=== PATIENT | female | born 1955 | race Caucasian/White ===

== ENCOUNTER → 2017-01-06 | Outpatient (CLI) | payer OTHER ==
[~2017-01-06] MED LIST: ACET-1256 PO; ASPEC325 PO; BUPR-79 PO; BUPRTAB51 PO; BUSP5TAB59 PO; CHOL100010 PO; DOCU100C PO; ESCI10TA17 PO; HYDR-5688 PO; LEVO125T4 PO; LEVO137T3 PO; MELA1CAP9 PO; SIMV20TA2 PO; TRIA37.5 PO
== END | disposition home or self-care (01) ==
LOC: C.MAMM 07:37
PROVIDERS: ATTEND Internal Medicine
DX: E55.9 Vitamin D deficiency, unspecified (principal); M85.80 Other specified disorders of bone density and structure, unspecified site

== ENCOUNTER → 2017-03-11 | Outpatient (CLI) | payer OTHER ==
[~2017-03-11] MED LIST changes: -LEVO125T4 PO; +LEVO125T5 PO
[2017-03-11 13:47] LABS: ESTIMATED AVERAGE GLUCOSE 117 mg/dl; HA1C FLAG Normal (Normal)
[2017-03-11 15:28] LABS: BLOOD UREA NITROGEN 14 mg/dl (7-18); BUN/CREATININE RATIO 17.8 (10-20); CALCIUM 8.9 mg/dl (8.5-10.1); CARBON DIOXIDE 30 mmol/L (21-32); CHLORIDE 105 mmol/L (98-107); CREATININE 0.79 mg/dl (0.60-1.20); GLUCOSE 123 mg/dl (70-99); POTASSIUM 3.2 mmol/L (3.5-5.1); SODIUM 141 mmol/L (136-145)
== END | disposition home or self-care (01) ==
LOC: C.LABBC 11:35
PROVIDERS: ATTEND Physician Assistant Medical
DX: R73.9 Hyperglycemia, unspecified (principal); I10 Essential (primary) hypertension; E03.9 Hypothyroidism, unspecified

== ENCOUNTER → 2017-05-19 | Outpatient (CLI) | payer OTHER ==
--- NOTE | 2017-05-20 13:28 | MAMMOGRAPHY REPORT ---
BILATERAL DIGITAL SCREENING MAMMOGRAM TOMOSYNTHESIS WITH CAD: 05/19/2017 CLINICAL HISTORY: Routine screening. Patient has no complaints. TECHNIQUE: Breast tomosynthesis in addition to standard 2D mammography was performed. Current study was also evaluated with a Computer Aided Detection (CAD) system. COMPARISON: Comparison is made to exams dated: 05/17/2016 mammogram, 05/16/2015 mammogram, 04/07/2014 m ammogram, 04/06/2013 mammogram, 03/31/2012 mammogram, and 03/26/2011 mammogram - [facility]. BREAST COMPOSITION: There are scattered areas of fibroglandular density in both breasts. FINDINGS: There is a 5 mm focal asymmetry with possible associated microcalcification in the 6:00 mi ddle one third of the right breast, for which additional spot magnification views and a possible targ eted ultrasound is recommended. No other suspicious mass, architectural distortion or cluster of microcalcifications is seen bilatera lly. IMPRESSION: ACR BI-RADS CATEGORY 0: INCOMPLETE EVALUATION: NEED ADDITIONAL IMAGING EVALUATION The 5 mm focal asymmetry with possible associated microcalcification in the 6:00 right breast needs a dditional evaluation. The patient will be called to schedule an appointment. Approximately 10% of breast cancers are not detected with mammography. A negative mammographic report should not delay biopsy if a clinically suggestive mass is present. Esther Lundy M.D. ay/:05/19/2017 16:04:25 Hand Packer: Talisha LUNA(Genoveva)(Shayan), [facility] letter sent: Addl Imaging 0 BI-RADS Code: ACR BI-RADS Category 0: Incomplete Evaluation: Need Additional Imaging Evaluation
== END | disposition home or self-care (01) ==
LOC: C.MAMM 07:37
PROVIDERS: ATTEND Internal Medicine Geriatric Medicine
DX: Z12.31 Encounter for screening mammogram for malignant neoplasm of breast (principal); R92.0 Mammographic microcalcification found on diagnostic imaging of breast; N64.89 Other specified disorders of breast

== ENCOUNTER → 2017-05-29 | Outpatient (CLI) | payer OTHER ==
[~2017-05-29] MED LIST changes: +LEVO125T4 PO; -LEVO125T5 PO
--- NOTE | 2017-05-29 13:49 | MAMMOGRAPHY REPORT ---
UNILATERAL RIGHT DIGITAL DIAGNOSTIC MAMMOGRAM AND TARGETED RIGHT ULTRASOUND: 05/29/2017 CLINICAL HISTORY: 61-year-old woman called back from screening mammography for a small, 4 mm focal as ymmetry versus mass with associated calcification in the 6:00 axis. TECHNIQUE: Spot magnification right CC and ML views were obtained. Full field right CC and MLO nichole synthesis images were obtained after placement of a skin BB marker. COMPARISON: Comparison is made to exams dated: 05/19/2017 mammogram, 05/17/2016 mammogram, 05/16/2015 m ammogram, 04/07/2014 mammogram, 04/06/2013 mammogram, and 03/31/2012 mammogram - [facility]ter. BREAST COMPOSITION: There are scattered areas of fibroglandular density in the right breast. FINDINGS: Spot magnification views of the right breast demonstrate a single punctate microcalcificat ion associated with a 4.5 mm focal asymmetry in the 6:00 middle one third of the right breast. No as sociated architectural distortion. This focal asymmetry and calcification are increasingly conspicuo us compared to prior mammograms. Targeted ultrasound was performed in the 6:00, 5:00 and 7:00 axes of the right breast. In the 7:00 b reast, 6 cm from the nipple, there is a lobulated isoechoic mass with anechoic tubular structures cou rsing to and from the mass. This possibly represents an intraductal mass, and measures 4.3 x 2.5 x 5 .2 mm. It was unclear if this sonographic lesion could correlate with the mammographic finding and t herefore a skin BB was placed overlying the sonographic abnormality and repeat full field right CC an d MLO tomosynthesis images were performed. The BB marker appears to align with the mammographic mass in question, confirming mammographicsonographic correlation. Definitive characterization with an u ltrasound guided core needle biopsy is recommended. IMPRESSION: ACR BI-RADS CATEGORY 4: SUSPICIOUS, TARGETED ULTRASOUND ACR BI-RADS CATEGORY 4: SUSPICIO US 1. Ultrasound guided core needle biopsy is recommended for an indeterminate 5 mm mass in the 7:00 ri ght breast, 6 cm from the nipple, thought to correlate with a focal mammographic asymmetry with singl e associated calcification, as described on the screening mammography report. This could represent a n intraductal mass such as a papilloma. Correlation with final post procedure mammograms is also rec ommended. These results and recommendations were discussed with the patient at the time of the exam. She tenta tively scheduled the biopsy prior to leaving the department. Approximately 10% of breast cancers are not detected with mammography. A negative mammographic report should not delay biopsy if a clinically suggestive mass is present. Esther Lundy M.D. ay/:05/29/2017 12:49:22 Cold Molding Press Operator: Jayashree LUNA(Genoveva)(Shayan), [facility] letter sent: Abnormal 4/5 BI-RADS Code: ACR BI-RADS Category 4: Suspicious Ultrasound BI-RADS: ACR BI-RADS Category 4: Suspici ous
== END | disposition home or self-care (01) ==
LOC: C.MAMM 08:24
PROVIDERS: ATTEND Internal Medicine Geriatric Medicine
DX: N64.89 Other specified disorders of breast (principal)

== ENCOUNTER → 2017-06-03 | Outpatient (CLI) | payer OTHER ==
--- NOTE | 2017-06-03 13:05 | Discharge Instructions ---
Discharge Instructions Procedure Procedure Date: Jun 03, 2017. Reason for visit: Right Mass. Discharge Discharge Date: Jun 03, 2017. Discharge Diagnosis: post right breast ultrasound guided core biopsy Instructions Activity Recommendations: Additional Limitations (see below) Return to School/Work: no limitations Recommended Home Diet: No Limitations Provider Instructions: ACTIVITY RECOMMENDATIONS: * No lifting, pushing, pulling or exercising the affected side for three days. RETURN TO SCHOOL/WORK: * You may return to work/school after the procedure, but do not perform any strenuous activities for 24 to 48 hours. MEDICATIONS: * Tylenol (two 325 mg) every four to six hours if needed for mild pain (if not allergic to Tylenol). DIET: * Resume previous diet. SPECIAL CARE INSTRUCTIONS: * Keep biopsy site dry for 24 hours. May shower after 24 hours, but do not soak (bathe) incision. * May remove Tegaderm (plastic patch) tomorrow AFTER showering. * Leave the steri-strips on for one week. Allow the steri-strips to fall off by themselves. If not off after one week, you may remove them. You may place a Bandaid crosswise over the strips, if desired. * Apply ice 10 minutes on and 10 minutes off as needed. * Wear a bra at bedtime to sleep more comfortably for 2-3 days. * Your referring physician should have the results after approximately 5 to 7 business days. * Call for unusual bleeding, fever, drainage, etc or if you have any questions call [phone] during normal business hours or after hours call Dr Lundy, . FOLLOW UP VISIT: Follow-up with Referring Physician as scheduled. Allergies Coded Allergies: No Known Allergies (Unverified , 05/14/16) Bailee Guerrero Recommendations: Call your doctor if: * Temperature above 101 degrees * Pain not relieved by pain medicine ordered * There is increased drainage or redness from any incision * You have any unanswered questions or concerns. Your Doctors Instructions noted above were prepared by provider Esther Lundy. Patient Signature Section: Patient Instructions Signature Page Moraima Morel Patient (or Guardian) Signature/Date: I have read and understand the instructions given to me by my caregivers. Caregiver/RN/Doctor Signature/Date: The above-named patient and/or guardian has received patient instructions on this date. + Original Patient Signature Page (only) stays with chart. Please make copy for patient.
--- NOTE | 2017-06-03 13:53 | MAMMOGRAPHY REPORT ---
THIS REPORT HAS BEEN AMENDED. ULTRASOUND GUIDED BIOPSY RIGHT BREAST: 06/03/2017 CLINICAL HISTORY: Lobulated hypoechoic possible intraductal 5 mm mass in the 7:00 right breast, thoug ht to correlate with a small focal asymmetry and associated microcalcifications seen mammographically . Patient presents for ultrasound-guided core needle biopsy. COMPARISON: Comparison is made to exams dated: 06/03/2017 mammogram, 05/29/2017 mammogram, 05/29/2017 ult rasound, 05/19/2017 mammogram, 05/17/2016 mammogram, and 05/16/2015 mammogram - [facility]ter. PATIENT CONSENT: The procedure, risks and benefits were discussed with the patient and informed writt en consent was obtained. Specific risks to this procedure include: bleeding, infection, puncture of a djacent structure, nontarget biopsy, sampling error, medication reaction, metal allergy and pain. PROCEDURE DESCRIPTION: A time out was performed and the right breast was agreed as the site of biopsy . The skin was prepped and draped in the usual sterile fashion. The hypoechoic solid mass, possibly i ntraductal, in the 7:00 right breast was chosen as the target for biopsy. Subcutaneous and intraparen chymal 1% buffered lidocaine was administered as local anesthesia. A skin incision was made. Through the incision, 4 samples were taken with a 12-gauge Celero biopsy device. A ribbon-shaped metallic ma rker was placed at the biopsy site. Hemostasis was achieved after manual compression. The patient angelita erated the procedure well and there was no immediate complication. The samples were sent to [facility] in an appropriately labeled container. Postprocedure right CC and ML tomosynthesis images were obtained. There is alignment of the ribbon-s haped metallic biopsy marker with the expected location of the previously observed focal asymmetry, c onfirming mammographicsonographic correlation. No residual asymmetry is currently identified, nor i s the associated microcalcification. No significant postbiopsy hematoma is seen. IMPRESSION: ULTRASOUND GUIDED BIOPSY Status post ultrasound-guided core biopsy of a small hypoechoic, possibly intraductal mass in the 7:0 0 right breast, which correlates with a mammographic focal asymmetry. The patient will receive notification of the biopsy results from her referring physician. Esther Lundy M.D. ay/:06/03/2017 13:21:59 Restaurant Greeter: Sheila BECK)(Shayan), [facility] AMENDMENT: 06/13/2017 Esther Lundy M.D. Pathology results from the ultrasound-guided core biopsy of a small, 5 mm mass with associated calcif ication in the 7:00 right breast yielded a papillary proliferation with usual ductal hyperplasia. In the comment section of the pathology report, "sections reveal an intraductal papillary proliferation . Features of usual ductal hyperplasia are noted. No atypical ductal hyperplasia or DCIS is identif ied. No invasive carcinoma is seen. On the tibia is noted, papillary lesions may show differing fea tures within different areas of the lesion and as such excisional biopsy is suggested." It should be noted that using ultrasound guidance, the lesion was biopsied to near complete resolutio n and on the postprocedure mammogram images, no residual mass lesion was seen in the area of the biop sy marker clip. Therefore it is unclear if any of the lesion remains for surgical excision. Neverth eless, surgical consultation for discussion of possible surgical excision versus imaging follow-up is recommended.
--- NOTE | 2017-06-03 13:54 | MAMMOGRAPHY REPORT ---
UNILATERAL RIGHT DIGITAL DIAGNOSTIC MAMMOGRAM TOMOSYNTHESIS: 06/03/2017 CLINICAL HISTORY: Status post ultrasound-guided core biopsy of a possible intraductal mass in the 7:0 0 right breast on ultrasound thought to correlate with a focal asymmetry with single associated calci fication mammographically. Please refer to the report from right breast ultrasound guided core biopsy performed at the same time for full detail. IMPRESSION: POST PROCEDURE IMAGING FOR MARKER PLACEMENT Please refer to the report from right breast ultrasound guided core biopsy performed at the same time for full detail. Approximately 10% of breast cancers are not detected with mammography. A negative mammographic report should not delay biopsy if a clinically suggestive mass is present. Esther Lundy M.D. ay/:06/03/2017 13:06:43 Software Quality Specialist: Sheila BECK)(Shayan), [facility] BI-RADS Code: Post Procedure Imaging For Marker Placement
== END | disposition home or self-care (01) ==
LOC: C.MAMM 12:36
PROVIDERS: ATTEND Internal Medicine Geriatric Medicine
DX: N63 Unspecified lump in breast (principal); N62 Hypertrophy of breast

== ENCOUNTER → 2017-07-18 | Outpatient (CLI) | payer OTHER ==
[~2017-07-18] MED LIST changes: -ASPEC325 PO; -BUPR-79 PO; -BUPRTAB51 PO; -DOCU100C PO; -LEVO137T3 PO
[2017-07-18 14:13] LABS: BLOOD UREA NITROGEN 20 mg/dl (7-18); BUN/CREATININE RATIO 26.9 (10-20); CALCIUM 8.7 mg/dl (8.5-10.1); CARBON DIOXIDE 30 mmol/L (21-32); CHLORIDE 104 mmol/L (98-107); CREATININE 0.74 mg/dl (0.60-1.20); GLUCOSE 123 mg/dl (70-99); POTASSIUM 3.6 mmol/L (3.5-5.1); SODIUM 140 mmol/L (136-145)
[2017-07-18 14:26] LABS: BASO % 0.3 %; BASO ABS # 0.02 K/uL (0-0.2); COMPLETE YES; EOS % 2.2 %; HEMATOCRIT 41.9 % (37-47); IG% 0.1 %; LYMPH % 26.9 %; LYMPH ABS # 1.85 K/uL (1.2-3.4); MEAN CELL VOLUME 89.7 fL (80-100); MEAN CORPUSCULAR HGB CONC 34.6 g/dl (32-36); MEAN PLATELET VOLUME 10.3 fL (7.4-10.4); MONO % 6.7 %; NEUT % 63.8 %; PLATELET COUNT 281 K/uL (130-400); RED BLOOD COUNT 4.67 M/uL (4.2-5.4); WHITE BLOOD COUNT 6.88 K/uL (4.8-10.8)
== END | disposition home or self-care (01) ==
LOC: C.LABBC 11:39
PROVIDERS: ATTEND Surgery
DX: Z01.812 Encounter for preprocedural laboratory examination (principal); D24.1 Benign neoplasm of right breast

== ENCOUNTER → 2017-07-29 | Day surgery (SDC) | payer OTHER ==
[2017-07-17 16:31] VITALS: Ht 172.7 cm; Wt 104.5 kg
[~2017-07-29] VITALS: Ht 172.7 cm; Wt 104.5 kg
[~2017-07-29] MED LIST changes: +ATROPINE SULFATE 0.1 MG/ML 5ML SYR IV PRN; +CEFAZOLIN 2000 MG/60 ML D5W IV SCH; +DEXAMETHASONE SOD INJ 4 MG/ML VIAL ONE; +EpHEDrine SULFATE INJ 50 MG/ML AMP IV PRN; +FENTANYL CITRATE INJ 50 MCG/1 ML 2 ML VIAL ONE; +HYDROCODONE/ACETAMOPHEN 5/325MG TAB PO PRN; +LACTATED RINGER'S 1000ML 1,000 ML IV SCH; +LIDOCAINE HCL 1% 20 ML VIAL ONE; +LIDOCAINE HCL 2% 2 ML VIAL (20MG/ML) ONE; +MIDAZOLAM HCL 1 MG/ML 2ML VIAL ONE; +ONDANSETRON INJ 2 MG/ML 2 ML VIAL ONE; +PROPOFOL IV EMULSION 10 MG/ML 20 ML VIAL IV ONE; +SODIUM CHLORIDE 0.9% 1000ML 1,000 ML IV SCH
--- NOTE | 2017-07-29 11:59 | History & Physical Bridge - SC ---
H&P Re-Evaluation Bridge Note: I have examined the patient, reviewed the History & Physical and in the interval since the performance of the History & Physical I have noted the following changes of clinical significance: No changes noted
--- NOTE | 2017-07-29 12:59 | Discharge Instructions-SurgCtr ---
Discharge Instructions Date of Service Jul 29, 2017. Visit Reason for Visit: Right Breast Papilloma Discharge Discharge Diagnosis / Problem: papilloma Rt breast Discharge Goals Goal(s): Decrease discomfort, Improve function, Improve disease control Activity Recommendations Activity Limitations: as noted below Lifting Limitations: no more than 25 pounds Exercise/Sports Limitations: until after follow-up appointment May Resume Sexual Activity: when tolerated Shower/Bathe: tomorrow Driving or Machine Use: resume 1 day after discharge SPECIAL CARE INSTRUCTIONS: * Cover incisions and change daily for comfort/drainage. * May use ibuprofen for pain as tolerated. * Expect some swelling and bruising. Call your doctor if: * Temperature above 101 degrees * Pain not relieved by pain medicine ordered * There is increased drainage or redness from any incision * You have any unanswered questions or concerns [phone]. FOLLOW UP VISIT: If not already scheduled, please call the office for a follow-up visit. for next week- some sutures OFFICE PHONE NUMBER: Dr. Multani Office Anesthesia . Post Anesthesia Instructions: If you have had General Anesthesia or IV Sedation: * Do not drive today. * Resume driving when surgeon permits. * Do not make important decisions or sign legal documents today. * Call surgeon for: 1. Temperature elevations greater than 101 degrees F. 2. Uncontrollable pain. 3. Excessive bleeding. 4. Persistent nausea and vomiting. 5. Medication intolerance (nausea, vomiting or rash). * For nausea and vomiting use only clear liquids such as: tea, soda, bouillon until nausea subsides, then gradually increase diet as tolerated. * If you have any concerns or questions, call your surgeon's office. If physician is unavailable and it is an emergency, call 911 or go to the nearest emergency room. . Diet Recommendations Home Diet: resume previous diet Procedures Procedures Performed: Right Breast Biopsy With Needle Localization Pending Studies Studies pending at discharge: no Medical Emergencies . Who to Call and When: Medical Emergencies: If at any time you feel your situation is an emergency, please call 911 immediately. . Non-Emergent Contact Non-Emergency issues call your: Primary Care Provider, Surgeon . . "Provider Documentation" section prepared by Duran Multani. .
[2017-07-29 13:39] VITALS: TEMP 36.4
--- NOTE | 2017-07-29 13:46 | Anesthesiology Progress Note ---
Anesthesia Post Op Note Date & Time Jul 29, 2017 at 13:46 Vital Signs Pain Intensity: 0 Vital Signs Past 12 Hours Date Time Temp Pulse Resp B/P (MAP) Pulse Ox O2 Delivery O2 Flow Rate FiO2 07/29/17 13:39 36.4 76 16 135/98 (110) 98 Room Air 07/29/17 13:26 36.4 71 18 126/90 96 Room Air 07/29/17 13:23 72 14 95 07/29/17 13:23 72 14 07/29/17 13:21 130/76 07/29/17 13:18 75 12 97 07/29/17 13:18 75 12 07/29/17 13:16 140/71 07/29/17 13:13 70 11 07/29/17 13:13 66 11 100 07/29/17 13:11 125/85 07/29/17 13:08 73 11 94 07/29/17 13:08 73 11 07/29/17 13:06 129/86 07/29/17 13:03 73 11 99 07/29/17 13:03 73 11 07/29/17 13:02 74 10 07/29/17 13:02 73 10 99 07/29/17 13:01 124/76 07/29/17 12:57 76 10 07/29/17 12:57 76 10 98 07/29/17 12:56 124/77 07/29/17 12:53 119/82 07/29/17 12:52 90 07/29/17 12:52 36.2 86 16 119/82 96 Mask 6 07/29/17 12:52 90 96 07/29/17 10:11 36.6 76 16 133/84 (100) 97 Room Air Notes Mental Status: alert / awake / arousable, participated in evaluation Pt Amnestic to Procedure: Yes Nausea / Vomiting: adequately controlled Pain: adequately controlled Airway Patency, RR, SpO2: stable & adequate BP & HR: stable & adequate Hydration State: stable & adequate Anesthetic Complications: no major complications apparent
[2017-07-29 13:50] VITALS: BP 132/84; PULSE 67; O2SAT 98
--- NOTE | 2017-07-29 14:06 | OPERATIVE REPORT ---
DATE OF OPERATION: 07/29/2017 PREOPERATIVE DIAGNOSIS: Right breast papilloma. POSTOPERATIVE DIAGNOSIS: Same. NAME OF OPERATION: Excision of right breast papilloma. STAFF SURGEON: Dr. Multani. ANESTHESIA: 1% plain lidocaine with sedation. PROCEDURE: The patient was brought in the operating room and placed on the operating table in supine position. Her right breast was prepped and draped in usual fashion. She had a needle placed inferiorly in the breast center. Using 1% plain lidocaine, skin and subcutaneous tissue around the needle were anesthetized. Incision made carrying dissection down around the tip of the needle excising the tissue sending it for mammography. The clip was within the specimen. Deep tissue was reapproximated using 2-0 plain catgut suture then the skin reapproximated using 5-0 Prolene suture. Dressing applied and patient transferred to recovery room in stable condition. I attest to the content of the Intraoperative Record and any orders documented therein. Any exception s are noted below.
--- NOTE | 2017-07-29 16:43 | MAMMOGRAPHY REPORT ---
NEEDLE LOCALIZATION RIGHT BREAST: 07/29/2017 CLINICAL HISTORY: 61-year-old woman with a biopsy-proven papilloma in the 7:00 posterior right breast . She presents for preoperative localization prior to surgical excision. COMPARISON: Comparison is made to exams dated: 07/29/2017 specimen - [facility], 05/24 ultrasound biopsy, 06/03/2017 mammogram, and 05/29/2017 mammogram - [facility]. PATIENT CONSENT: The risks of the procedure were explained to the patient and informed consent was ob tained. The patient denied eating or drinking anything this morning that would preclude anesthesia. She also denied allergy to lidocaine. PROCEDURE DESCRIPTION: Post procedure mammograms dated 06/03/2017 were reviewed. The ribbon-shaped m etallic biopsy marker in the 7:00 right breast is the intended target for preoperative localization. With the patient standing, the left breast was placed in CC from below compression. 1% buffered Lido porfirio without epinephrine was administered as local anesthesia. A 5cm Eubanks II needle and wire comb ination was inserted into the breast. Optimal positioning was confirmed and the wire was locked in pl tavo, leaving both the needle and wire within the breast, as per surgeon's preference. The entire pro cedure including approach and needle length were discussed with the operating surgeon prior to surger y. The patient tolerated the procedure well and there was no immediate complication. She was sent t o the operating room in satisfactory condition. The specimen radiograph demonstrates the localizing needle and wire, a small nodular asymmetry and a ribbon-shaped biopsy marker clip, compatible with successful preoperative localization and subsequent surgical excision. IMPRESSION: NEEDLE LOCALIZATION Status post successful preoperative needle and wire localization for biopsy-proven papilloma in the 7 :00 right breast. The imaged specimen includes the intended abnormality. The patient will receive notification of the pathology results from her referring physician. Esther Lundy M.D. ay/:07/29/2017 12:56:36 Liner Checker: Juanis Pittman, [facility]
--- NOTE | 2017-07-31 07:39 | MAMMOGRAPHY REPORT ---
SPECIMEN: 07/29/2017 CLINICAL HISTORY: Right breast surgical specimen from papilloma excision. Please refer to the report from right breast image guided needle localization performed at the same t rupert for full detail. IMPRESSION: SPECIMEN Please refer to the report from right breast image guided needle localization performed at the same t rupert for full detail. Esther Lundy M.D. ay/:07/29/2017 10:56:31 Multi Needle Machine Operator: Juanis Pittman, [facility]
== END | disposition home or self-care (01) ==
LOC: X.SURG 09:17
PROVIDERS: ATTEND Surgery
DX: D24.1 Benign neoplasm of right breast (principal); N63 Unspecified lump in breast; N60.91 Unspecified benign mammary dysplasia of right breast

== ENCOUNTER → 2017-12-11 | Outpatient (CLI) | payer OTHER ==
[2017-12-12 06:17] LABS: HEMOGLOBIN A1C 5.7 % (4.5-5.6)
[2017-12-12 06:17] LABS: ESTIMATED AVERAGE GLUCOSE 117 mg/dl; HA1C FLAG Normal (Normal)
== END | disposition home or self-care (01) ==
LOC: C.LAB1850 13:04
DX: R73.9 Hyperglycemia, unspecified (principal)

== ENCOUNTER → 2018-06-11 | Outpatient (CLI) | payer OTHER ==
[~2018-06-11] MED LIST changes: -ATROPINE SULFATE 0.1 MG/ML 5ML SYR IV PRN; -CEFAZOLIN 2000 MG/60 ML D5W IV SCH; -DEXAMETHASONE SOD INJ 4 MG/ML VIAL ONE; -EpHEDrine SULFATE INJ 50 MG/ML AMP IV PRN; -FENTANYL CITRATE INJ 50 MCG/1 ML 2 ML VIAL ONE; -HYDR-5688 PO; -HYDROCODONE/ACETAMOPHEN 5/325MG TAB PO PRN; -LACTATED RINGER'S 1000ML 1,000 ML IV SCH; -LEVO125T4 PO; +LEVO125T5 PO; -LIDOCAINE HCL 1% 20 ML VIAL ONE; -LIDOCAINE HCL 2% 2 ML VIAL (20MG/ML) ONE; -MIDAZOLAM HCL 1 MG/ML 2ML VIAL ONE; -ONDANSETRON INJ 2 MG/ML 2 ML VIAL ONE; -PROPOFOL IV EMULSION 10 MG/ML 20 ML VIAL IV ONE; -SODIUM CHLORIDE 0.9% 1000ML 1,000 ML IV SCH
== END | disposition home or self-care (01) ==
LOC: C.LAB1850 08:33
PROVIDERS: ATTEND Physician Assistant Medical
DX: Z00.00 Encounter for general adult medical examination without abnormal findings (principal)

== ENCOUNTER → 2018-06-15 | Outpatient (CLI) | payer OTHER ==
[2018-06-15 10:03] LABS: ALBUMIN 3.5 gm/dl (3.4-5.0); ALKALINE PHOSPHATASE 93 U/L (45-117); ALT/SGPT 26 U/L (12-78); AST/SGOT 13 U/L (15-37); BLOOD UREA NITROGEN 18 mg/dl (7-18); CALCIUM 8.4 mg/dl (8.5-10.1); CARBON DIOXIDE 28 mmol/L (21-32); CREATININE 0.75 mg/dl (0.60-1.20); GLUCOSE 104 mg/dl (70-99); POTASSIUM 3.8 mmol/L (3.5-5.1); SODIUM 139 mmol/L (136-145); TOTAL PROTEIN 7.5 gm/dl (6.4-8.2)
== END | disposition home or self-care (01) ==
LOC: C.LAB1850 08:12
PROVIDERS: ATTEND Physician Assistant Medical
DX: I10 Essential (primary) hypertension (principal); E03.9 Hypothyroidism, unspecified; R79.9 Abnormal finding of blood chemistry, unspecified; R73.9 Hyperglycemia, unspecified; M85.80 Other specified disorders of bone density and structure, unspecified site

== ENCOUNTER → 2018-06-29 | Outpatient (CLI) | payer OTHER ==
--- NOTE | 2018-06-29 07:16 | DIAGNOSTIC IMAGING REPORT ---
Brain MRA HISTORY: HEADACHE, FAMILY HX ANEURYSM TECHNIQUE: 3-D [id number] MRA of the brain was performed without contrast. COMPARISON STUDY: None. FINDINGS: Visualized intracranial internal carotid arteries, distal vertebral arteries, and basilar artery are widely patent. There is no significant stenosis, occlusion, or aneurysm seen within the bilateral ACAs, MCAs, or it analyst. IMPRESSION: No significant stenosis, occlusion, or aneurysm within the [place]. Electronically signed by: Cecilio Yanes M.D. 06/29/2018 7:14 AM Dictated Date/Time: 06/29/2018 7:10 AM
== END | disposition home or self-care (01) ==
LOC: C.MRI 06:28
PROVIDERS: ATTEND Physician Assistant Medical
DX: Z00.00 Encounter for general adult medical examination without abnormal findings (principal); R51 Headache; Z82.49 Family history of ischemic heart disease and other diseases of the circulatory system

== ENCOUNTER 2023-04-22 09:20 | Observation (INO) ==
--- NOTE | 2023-04-03 15:55 | PAT Medication Instructions ---
Medication Instructions Date of Service April 03, 2023 Home Medications Medication Instructions Recorded Oxygen Home See Rx Instructions .Route 11/29/20 .COMPLEX #1 ea atorvastatin 20 mg tablet 20 mg PO QAM #90 tabs 07/16/22 bupropion HCl 300 mg 24 hr tablet, 300 mg PO QAM #90 tabs 07/16/22 extended release atorvastatin 20 mg tablet 20 mg PO QAM bupropion HCl 300 mg 24 hr tablet, extended release 300 mg PO QAM acetaminophen 500 mg tablet 100 mg PO QAM celecoxib 200 mg capsule (Celebrex) 200 mg PO QAM cholecalciferol (vitamin D3) 125 mcg (5,000 unit) tablet (Vitamin D3) 125 mcg PO QAM duloxetine 60 mg capsule,delayed release 60 mg PO QAM levothyroxine 150 mcg tablet 150 mcg PO QAM omeprazole 20 mg capsule,delayed release 20 mg PO QAM propranolol 60 mg capsule,24 hr,extended release 60 mg PO QAM triamterene 37.5 mg-hydrochlorothiazide 25 mg tablet 1 tab PO QAM zolpidem 6.25 mg tablet,extended release,multiphase (Ambien CR) 6.25 mg PO HS ASK your surgeon for instructions celecoxib 200 mg capsule (Celebrex) 200 mg PO QAM DO NOT take the morning of surgery triamterene 37.5 mg-hydrochlorothiazide 25 mg tablet 1 tab PO QAM cholecalciferol (vitamin D3) 125 mcg (5,000 unit) tablet (Vitamin D3) 125 mcg PO QAM Take morning of surgery With a small sip of water, OTHERWISE NOTHING TO EAT OR DRINK AFTER MIDNIGHT: propranolol 60 mg capsule,24 hr,extended release 60 mg PO QAM omeprazole 20 mg capsule,delayed release 20 mg PO QAM duloxetine 60 mg capsule,delayed release 60 mg PO QAM levothyroxine 150 mcg tablet 150 mcg PO QAM acetaminophen 500 mg tablet 100 mg PO QAM atorvastatin 20 mg tablet 20 mg PO QAM bupropion HCl 300 mg 24 hr tablet, extended release 300 mg PO QAM Take evening before surgery zolpidem 6.25 mg tablet,extended release,multiphase (Ambien CR) 6.25 mg PO HS Other Notes If you have any questions please call us at [phone] or [phone] or [phone] or [phone]
--- NOTE | 2023-04-07 09:37 | Anesthesiology Consultation ---
Date of Service April 07, 2023 Assessment & Plan (1) Encounter for pre-operative examination: - COVID screening: Per assessment on 04/07: No known COVID-19 positive contacts or current COVID-19 related symptoms. Travel screen negative. Patient vaccinated. At surgeon discretion if preop Covid testing being done. - Outpatient joint assessment: Pt currently scheduled for inpatient pathway. If surgeon requests review for outpatient joint pathway, patient is not recommended candidate for outpatient joint program from anesthesia standpoint. - S/P Right TKA (06/28/16): SAB at L4-5 (x2 attempts) + PNB at [facility] Chart Review Chart Review: Acceptable Risk for Surgery and Patient seen in Pre Admission Testing Teaching & Discussion Pre-Anesthesia Teaching/Discussion Notes: Instructed NPO after midnight before surgery,except medications with 15 cc of water. Medication instructions provided according to the PAT guidelines. History Surgery Operation Date: 04/22/23 08:50 Proposed Procedures p Left Total Knee Arthroplasty - Ryan Cespedes MD Height/Weight Height: 5 ft 8 in Weight: 104.2 kg Allergies Allergy/AdvReac Type Severity Reaction Status Date / Time No Known Allergies Allergy Verified 04/07/23 08:27 Medications Home Medications Medication Instructions Recorded Confirmed Last Taken Oxygen Home See Rx Instructions .Route 11/29/20 04/03/23 Unknown .COMPLEX #1 ea atorvastatin 20 mg tablet 20 mg PO QAM #90 tabs 07/16/22 04/03/23 11/06/22 06:00 bupropion HCl 300 mg 24 hr tablet, 300 mg PO QAM #90 tabs 07/16/22 04/03/23 11/06/22 06:00 extended release acetaminophen 500 mg tablet 100 mg PO QAM 04/03/23 04/03/23 Unknown celecoxib 200 mg capsule (Celebrex) 200 mg PO QAM pain 04/03/23 04/03/23 Unknown cholecalciferol (vitamin D3) 125 125 mcg PO QAM 04/03/23 04/03/23 Unknown mcg (5,000 unit) tablet (Vitamin D3) duloxetine 60 mg capsule,delayed 60 mg PO QAM 04/03/23 04/03/23 Unknown release levothyroxine 150 mcg tablet 150 mcg PO QAM 04/03/23 04/03/23 Unknown omeprazole 20 mg capsule,delayed 20 mg PO QAM 04/03/23 04/03/23 Unknown release propranolol 60 mg capsule,24 60 mg PO QAM 04/03/23 04/03/23 Unknown hr,extended release triamterene 37.5 1 tab PO QAM 04/03/23 04/03/23 Unknown mg-hydrochlorothiazide 25 mg tablet zolpidem 6.25 mg tablet,extended 6.25 mg PO HS 04/03/23 04/03/23 Unknown release,multiphase (Ambien CR) Past Medical History Medical History Anxiety Depression Dyslipidemia GERD (gastroesophageal reflux disease) History of COVID-19 11/2022 (home test)- sinus symptoms, rx paxlovid > resolved Hypertension Hypothyroidism Insomnia Migraine Hx Osteoarthritis Osteopenia Sleep apnea O2 2L HS (rare use, per patient often wakes up with it no longer being on/unaware how this happens, has tried/cannot tolerate CPAP) Thyroid goiter s/p radioactive iodine Exercise / Class Metabolic Activity II 4-5 Yardwork/Stairs/Walk up hill Past Family History Family History Mother Hypertension Lung cancer Father Lung cancer Hypertension Cerebral aneurysm Sister Hypertension Other No family history of adverse response to anesthesia Denies family history of Ovarian cancer Prostate cancer Myocardial infarction Breast cancer Colorectal cancer Stroke Past Surgical History Surgical History History of bilateral tubal ligation History of dilatation and curettage History of esophagogastroduodenoscopy (EGD) History of left cataract extraction History of open reduction and internal fixation (ORIF) procedure right wrist (hardware removed) History of right cataract extraction History of tonsillectomy and adenoidectomy History of total right knee replacement (TKR) Right TKA (06/28/16): SAB at L4-5 (x2 attempts) + PNB at [facility] History of wisdom tooth extraction Hx of colonoscopy Hx of right breast biopsy benign Past Anesthesia History No Hx of Anesthesia Complications and No Family Hx of Anesthesia Complications History of PONV No Hx of PONV and No Hx of Motion Sickness Social History Smoking Status: Current every day smoker Smoking cigarettes per day: Quit cigarettes 25 years ago, daily vapes Do You Dip or Chew Tobacco: No Hx Alcohol Use: Yes Alcohol type: beer alcohol intake frequency: a few times a month (one drink/week) Hx Substance Use: No substance use type: does not use Review of Systems Patient denies chest pain, shortness of breath, dyspnea on exertion, fever, chills, cough, wheezing, palpitations. Physical Exam Vital Signs VITALS BP 103/72 P 76 TEMP 98.1 SP02 95%RA RESP 16 PHYSICAL Full cervical extension range of motion. Full TMJ range of motion. TMD 4 finger breaths Mallampati Score 2 Dentition: several missing teeth, upper right side "broken tooth" > no plan for dental work prior to surgery* Lungs: clear throughout to auscultation Cardiac: regular rate and rhythm, no murmurs noted Spine: normal Carotid arteries: negative bruit Extremities: no LE edema Lab Results Anesthesia Preop Results Results Anesthesia Widget: WBC 6.63 K/ul (4.8-10.8) 04/07/23 Hgb 13.6 g/dl (12.0-16.0) 04/07/23 Hct 40.0 % (37.0-47.0) 04/07/23 Plt 246 K/uL (130-400) 04/07/23 Na 140 mmol/L (136-145) 04/07/23 K 4.1 mmol/L (3.5-5.1) 04/07/23 Cl 105 mmol/L (98-107) 04/07/23 CO2 30 mmol/L (21-32) 04/07/23 BUN 34 mg/dl (6-23) H 04/07/23 Creat 0.74 mg/dl (0.6-1.2) 04/07/23 Glucose Level 112 mg/dl (70-99(Fasting)) H 04/07/23 PT 10.3 Seconds (9.0-12.0) 04/07/23 PTT 28.1 Seconds (21.0-31.0) 04/07/23 INR 0.9 (0.9-1.1) 04/07/23 TSH 2.503 uIu/ml (0.300-4.500) 02/21/23 HA1c 5.6 % (4.5-5.6) 02/21/23 Blood Type A Positive 04/07/23 Antibody Screen NEGATIVE 04/07/23 Testing Electrocardiogram Date: 04/07/23 NSR at 74bpm. Chest X-Ray Date: 04/07/23 FINDINGS: PA and lateral chest radiographs are compared to study dated 05/14/2016. The cardiomediastinal silhouette is unremarkable. Chronic interstitial thickening is similar to previous. A calcified granuloma in the left lung is unchanged. The lungs and pleural spaces are otherwise clear. There is no pneumothorax. The skeletal structures are osteopenic. The bony thorax appears intact. Degenerative change is noted in the shoulders. Calcified joint bodies are seen on the left. IMPRESSION: No active disease in the chest. COVID-19 Risk Screen Screening Information COVID-19 Screen Date: 04/07/23 Exposure 21 Days Family/Household +COVID Last 21 Days: No Exposure 10 Days Any COVID Exposure Last 10 Days: No Symptoms Last 10 Days Experienced COVID Sx Last 10 Days: No + COVID 0-90 Days COVID + in Last 0-90 Days: No
[~2023-04-22 09:20] MED LIST changes: -ACET-1256 PO; +ACETAMINOPHEN 500 MG TAB PO SCH; +BUPIVACAINE 0.5 % 5 MG/1 ML PF 10ML VIAL ONE; +BUPIVACAINE LIPOSOME/PF 266 MG, BUPIVACAINE/EPINEPHRINE 50 ML, SODIUM CHLORIDE 0.9% PF ... INFIL SCH; -BUSP5TAB59 PO; -CHOL100010 PO; +CeleBREX 200 MG CAP PO SCH; +EPINEPHrine INJ 1 MG/ML AMP ONE; -ESCI10TA17 PO; +FAMOTIDINE 20 MG TAB PO SCH; -LEVO125T5 PO; +LR 500ML BOLUS, THEN 15ML/HR IV SCH; +LR 60ML/HR IV SCH; -MELA1CAP9 PO; +METOCLOPRAMIDE HCL 10 MG TABLET PO SCH; +ROPIVACAINE 0.5% 5 MG/ML 30 ML VIAL ONE; -SIMV20TA2 PO; +Scopolamine 1 MG TDSY TD SCH; +TRANEXAMIC ACID 1,000 MG **IV Intra-op IV SCH; -TRIA37.5 PO; +ceFAZolin 2000MG 2,000 MG/15 ML SYR IV SCH; +dexAMETHasone**PF** 10 MG/ML VIAL IV SCH
--- NOTE | 2023-04-22 10:49 | History & Physical Bridge Note ---
Date of Service April 22, 2023 History & Physical Bridge Note I have examined the patient, reviewed the History & Physical and in the interval since the performance of the History & Physical I have noted the following changes of clinical significance: no changes noted
[2023-04-22] MEDS ORDERED: PROPOFOL IV EMULSION 10 MG/ML 20 ML VIAL IV ONE (12:50)
[2023-04-22] MEDS ORDERED: MIDAZOLAM HCL 1 MG/ML 2ML VIAL ONE (12:51)
[2023-04-22] MEDS ORDERED: SODIUM CHLORIDE 0.9% PF 50 ML VIAL ONE (13:06)
[2023-04-22] MEDS ORDERED: BUPIVACAINE/EPINEPHRINE 0.25% 1:200,000 30 ML VIAL ONE (13:06)
[2023-04-22] MEDS ORDERED: BUPIVACAINE LIPOSOME 1.3% 266 MG/20 ML VIAL ONE (13:06)
[2023-04-22] MEDS ORDERED: FLUMAZENIL 0.1 MG/1 ML 10 ML VIAL IV PRN (13:23)
[2023-04-22] MEDS ORDERED: HYDROmorphone INJ 1 MG/ML SYRINGE IV PRN (13:23)
[2023-04-22] MEDS ORDERED: ONDANSETRON INJ 2 MG/ML 2 ML VIAL IV PRN ×2 (13:23→16:25)
[2023-04-22] MEDS ORDERED: PROMETHAZINE HCL 12.5 MG in SODIUM CHLORIDE 0.9% 50 ML IV PRN (13:23)
[2023-04-22] MEDS ORDERED: ePHEDrine sulfate 50 MG/ML AMP IV PRN (13:23)
[2023-04-22] MEDS ORDERED: ATROPINE SULFATE 0.1 MG/ML 10ML SYR IV PRN (13:23)
[2023-04-22] MEDS ORDERED: NALOXONE HCL 0.4 MG/1 ML VIAL/CARP IV PRN ×2 (13:23→16:25)
[2023-04-22] MEDS ORDERED: fentaNYL citrate PF 100 MCG/2 ML VIAL IV PRN (13:23)
[2023-04-22] MEDS ORDERED: ONDANSETRON INJ 2 MG/ML 2 ML VIAL ONE (13:38)
[2023-04-22] MEDS ORDERED: PHENYLEPHRINE 100MCG/ML 5ML SYR ONE (13:39)
[2023-04-22] MEDS ORDERED: ePHEDrine sulfate 50 MG/ML AMP ONE (14:59)
--- NOTE | 2023-04-22 15:02 | Operative Report ---
PG Post Operative Report Pre & Post Diagnosis Operation Date: 04/22/23 12:00 Pre-Op Diagnosis: Left knee degenerative joint disease Post-Op Diagnosis: Left knee degenerative joint disease I identified the patient and participated in the time-out.: Yes Procedure Operation Date: 04/22/23 12:00 Actual Procedures p Left Total Knee Arthroplasty(Left) - Ryan Cespedes MD Surgeon Ryan Cespedes MD Buckle Stapler Ross Tate PA-C Estimated Blood Loss 50 Findings Consistent with Post-Op Diagnosis Operative findings revealed advanced left knee lateral and patellofemoral compartment arthritis with full-thickness cartilage loss and a fixed valgus deformity to her knee. Moderate-sized joint effusion. Specimens Left knee sent for pathology Drains None Anesthesia Type Spinal MAC Complications none Disposition Accompanied Patient To Recovery: No Indications Patient is a 67-year-old female said a long history of knee problems. She underwent a right knee replaced about 7 years ago. Over the past several years she developed increased pain discomfort in her left knee. She failed conservative measures. X-rays show advanced left knee lateral compartment arthritis. She elected proceed with surgical treatment. Description of Procedure Operative implants consist of: 1 Biomet Vanguard size 65 left posterior stabilized femoral component. 2. Biomet size 71 tibial tray. 3. 12 mm posterior stabilized polyethylene plus insert 4. 31 x 8 all poly patella. The patient was taken the operating, identified, placed on the operating table supine position but all contact areas were properly padded. IV antibiotics tried by anesthesia team. A spinal anesthetic and abductor canal block had provided in the holding area. Naylor catheter was placed in sterile fashion. Left atrium was then placed in the left lower extremities then prepped and draped in usual sterile fashion. The left leg was elevated exsanguinated with use of an Esmarch and the tourniquet was placed at 300 mmHg. An anterior posterior left knee was then performed to longitudinal incision centered over the patella. Sharp dissection was carried through subcutaneous tissue down the extensor mechanism. A medial parapatellar arthrotomy incision was made. Some subperiosteal dissection was carried out medially. The fat pad was resected from Neath patella tendon. The lateral patellofemoral ligament was released. Patella subluxated laterally and the knee was flexed. The osteophytes taken on distal femur. The ACL and PCL were then released from distal femur and the tibia subluxated anteriorly. The external tibial alignment jig was then placed in the interface the tibia and adjusted 12 mm medially. Proximal tibial cut was made remove about 3 to 4 mm of bone from the medial side. The tibia sized to a size 71. Attention drawn the femur. The distal femur was entered with a sharp drill. Intramedullary canal was suction. An IM guide was placed. The IM guide was set at 5 degrees. The distal femoral cut was then made to take an additional 3 mm of bone off distal femur. The knee was brought into full extension I did release some of the IT band and posterior lateral capsule in order to equalize extension gap. Great care was taken to protect the peroneal nerve at all times. The knee was then flexed. The femur was then sized to a size 65. The AP cutting block was pinned parallel to the epicondylar axis which was 5 degrees of external rotation. Anterior cut, anterior chamfer, posterior cut, posterior chamfer cuts were made. The box cutting guide was placed in just slight lateral box cut was made. The knee was flexed. The remnants of the medial lateral menisci were excised. The osteophytes taken off the posterior aspect of femur. I did have to release the popliteus in order to equalize the flexion gap. The knee was then trialed a 12 mm insert fit most appropriately. There is still little bit of medial laxity so elected to use the PS plus insert. Attention drawn to the patella. Patella was cleaned of all soft tissues. Patella thickness measured 22 mm in thickness was cut down to 14. Was sized to a size 31 patella. The lug holes were drilled for 31 patella. The lateral osteophytes removed. Patella button was placed. Knee was taken through range of motion patella tracked nicely with no thumbs test. Attention drawn to placing permanent components. All trial components were removed. Bone plug was placed in the distal femur limit blood loss. Double batch Palacos G cement was mixed. A Biomet Vanguard size 65 left posterior stabilized femoral component, size 71 tibial tray, a 12 mm posterior stabilized polyethylene plus insert, and a 31 x 8 all Paller patella then cemented in place. The knee was brought out into full extension till cement hardened. Final cement check was then performed. The pericapsular tissues were injected with total of 100 cc of combination of 20 cc of Exparel, 30 cc normal saline, 50 cc of quarter percent Marcaine with epinephrine. Patient did receive 1 g tranexamic acid. The tourniquet was let down for final tourniquet time 55 minutes. Hemostasis assured use electrocautery. Extensor mechanism then closed with combination 1 PDS suture #1 Vicryl suture in a [id number] fashion. Extensor mechanism checked found to be intact. Subcutaneous tissues then closed with 2 Dexon suture in a buried interrupted fashion skin was closed with skin patty. Leg was then cleaned and dried and sterile dressed with Xeroform, 4 fours, sterile cast padding, Emigdio bandage were applied. The patient was then transferred to the recovery room in stable condition. The patient tolerated the procedure well and there were no complications. Ross Tate, my physician assistant manager, was present for the entire procedure. His assistance was essential and required for appropriate patient positioning, prepping and draping, surgical exposure, performing the technical details of the operation, placement the implants, closure of the wound, and placement of the sterile bandage. I attest to the content of the Intraoperative Record and any orders documented therein. Any exceptions are noted below.
--- NOTE | 2023-04-22 15:46 | XRay Report ---
LEFT KNEE 2 VIEWS History: Left total knee arthroplasty. Degenerative arthritis. Postop. FINDINGS: The patient is status post a left total knee arthroplasty. The hardware is intact. No fract ure or dislocation. Skin patty are in place. IMPRESSION: Left total knee arthroplasty. No evidence for hardware complication. ACT 112: Negative or not required by law. Electronically signed by: Cecilio Yanes M.D. 04/22/2023 3:44 PM
--- NOTE | 2023-04-22 16:06 | Anesthesiology Progress Note ---
Date of Service April 22, 2023 Anesthesia Post Procedure Vital Signs Vital Signs: Temp Pulse Pulse Resp BP BP Pulse Ox 04/22/23 15:50 79 10 L 102/59 L 99 04/22/23 15:40 74 12 102/65 99 04/22/23 15:30 79 18 98/65 L 95 04/22/23 15:20 79 20 112/68 96 04/22/23 15:10 81 18 102/70 95 04/22/23 15:01 36.5 C 78 14 114/62 96 04/22/23 09:56 36.6 C 83 18 147/91 H 96 O2 Del Method O2 Flow Rate 04/22/23 15:50 Room Air 04/22/23 15:40 Room Air 04/22/23 15:30 Room Air 04/22/23 15:20 Room Air 04/22/23 15:10 Room Air 04/22/23 15:01 Oxymask 4 04/22/23 09:56 Room Air Pain Intensity Left Knee: Pain Intensity: 5 Transfer of Care Handoff Completed per policy Notes Mental Status: alert / awake / arousable Patient Amnestic to Procedure: Yes Nausea / Vomiting: adequately controlled Pain: adequately controlled Airway Patency, RR, SpO2: stable & adequate BP & HR: stable & adequate Hydration State: stable & adequate Neuraxial Anesthesia: was administered and sensory block is resolving Anesthetic Complications: no major complications apparent
[2023-04-22] MEDS ORDERED: MAGNESIUM HYDROXIDE SUSP 30 ML UDC PO PRN (16:25)
[2023-04-22] MEDS ORDERED: oxyCODONE HCL IR 5 MG TAB (IMMEDIATE RELEASE) PO PRN (16:25)
[2023-04-22] MEDS ORDERED: ALUMINUM/MAGNESIUM SUSP 30 ML UDC PO PRN (16:25)
[2023-04-22] MEDS ORDERED: bisacodyL 10 MG SUPP PR PRN (16:25)
[2023-04-22] MEDS ORDERED: HYDROmorphone INJ 0.5 MG/0.5 ML SYR IV PRN (16:25)
[2023-04-22] MEDS ORDERED: METOCLOPRAMIDE HCL INJ 5 MG/ML 2 ML VIAL IV PRN (16:25)
[2023-04-22] MEDS: SODIUM CHLORIDE 0.9% 1000ML 1,000 ML IV SCH (17:28)
[2023-04-22] MEDS: Scopolamine CHECK PATCH PLACEMENT SCH (17:29)
[2023-04-22] MEDS: ASCORBIC ACID 500 MG TAB PO SCH (17:53)
[2023-04-22] MEDS: KETOROLAC TROMETHAMINE 15 MG/ML VIAL IV SCH (17:54)
[2023-04-22] MEDS ORDERED: ZOLPIDEM TARTRATE 5 MG TAB PO SCH (21:00)
[2023-04-22] MEDS ORDERED: SENNA 8.6 MG TAB PO SCH ×2 (21:00)
[2023-04-22] MEDS ORDERED: TRANEXAMIC ACID / 0.7% NACL 1,000 MG/100 ML BAG IV SCH (21:00)
[2023-04-22] MEDS: ASPIRIN 81 MG ECTAB PO SCH (21:47)
[2023-04-22] MEDS: DOCUSATE SODIUM 100 MG CAP PO SCH (21:47)
[2023-04-22] MEDS: ceFAZolin 2000MG 2,000 MG/15 ML SYR IV SCH (21:48)
[2023-04-22] MEDS: ACETAMINOPHEN 500 MG TAB PO SCH (21:48)
[2023-04-23] MEDS: Scopolamine CHECK PATCH PLACEMENT SCH ×2 (01:02→07:27)
[2023-04-23] MEDS: KETOROLAC TROMETHAMINE 15 MG/ML VIAL IV SCH ×3 (01:02→12:02)
[2023-04-23] MEDS: SODIUM CHLORIDE 0.9% 1000ML 1,000 ML IV SCH (03:46)
[2023-04-23] MEDS ORDERED: LEVOTHYROXINE SODIUM 150 MCG TABLET PO SCH (06:30)
[2023-04-23] MEDS: ceFAZolin 2000MG 2,000 MG/15 ML SYR IV SCH (07:26)
[2023-04-23] MEDS: ASCORBIC ACID 500 MG TAB PO SCH (07:27)
[2023-04-23 07:52] LABS: Hematocrit (blood only) 34.8 % (37.0-47.0); Mean Corpuscular Hemoglobin 31.4 pg (25.0-34.0); Mean Corpuscular Hgb Conc 34.5 g/dL (32.0-36.0); Mean Corpuscular Volume 91.1 fL (80.0-100.0); Platelet Count 255 K/uL (130-400); RDW Coefficient of Variation 11.8 % (11.5-14.5); RDW Standard Deviation 39.2 fL (36.4-46.3); Red Blood Count 3.82 M/uL (4.20-5.40); White Blood Count 16.79 K/ul (4.8-10.8)
[2023-04-23] MEDS ORDERED: dexAMETHasone 10 MG in SYRINGE 0 ML IV SCH (08:00)
[2023-04-23 08:12] LABS: Calcium 8.4 mg/dl (8.6-10.3); Potassium 3.7 mmol/L (3.5-5.1)
[2023-04-23 08:18] LABS: BUN Creatinine Ratio 29.4 (10-20); Creatinine Clr Calc Pharmacy 80.3 ml/min; Est GFR (African American) 82.2 ml/min; Est GFR (Non-African American) 70.9 ml/min
[2023-04-23] MEDS ORDERED: buPROPion XL 300 MG TABCR PO SCH (09:00)
[2023-04-23] MEDS ORDERED: DULoxetine HCL 60 MG CAP PO SCH (09:00)
[2023-04-23] MEDS ORDERED: MULTIVITAMIN TAB PO SCH (09:00)
[2023-04-23] MEDS ORDERED: ATORVASTATIN 20 MG TAB PO SCH (09:00)
[2023-04-23] MEDS ORDERED: CHOLECALCIFEROL 5,000 UNITS 125 MCG TAB PO SCH (09:00)
[2023-04-23] MEDS ORDERED: TRIAMTERENE/HCTZ 37.5/25MG TAB PO SCH (09:00)
[2023-04-23] MEDS ORDERED: PANTOprazole 40 MG TAB PO SCH (09:00)
[2023-04-23] MEDS ORDERED: PROPRANOLOL HCL 60 MG LA CAP PO SCH (09:00)
[2023-04-23] MEDS: ACETAMINOPHEN 500 MG TAB PO SCH ×2 (09:02→13:47)
[2023-04-23] MEDS: DOCUSATE SODIUM 100 MG CAP PO SCH (09:02)
[2023-04-23] MEDS: ASPIRIN 81 MG ECTAB PO SCH (09:03)
--- NOTE | 2023-04-23 13:40 | Progress Notes ---
SUBJECTIVE: A 67-year-old female postoperative day 1 from a left knee replacement. She is doing elsa te well. Therapy went well. Pain is controlled. She is hoping to go home. OBJECTIVE: VITAL SIGNS: Temperature is 37.0. Vital signs are stable. GENERAL: Shows a pleasant middle-aged female. She is sitting in her bedside chair, looks comfortabl e. EXTREMITIES: Examination of the left leg reveals the dressing to be clean, dry and intact. She can dorsiflex and plantarflex her foot appropriately. She has a good straight leg raise. NEUROLOGIC: She is neurologically intact. LABORATORY DATA: Hemoglobin 12.0. Hematocrit 34.8. Electrolytes are stable. ASSESSMENT: A 67-year-old female postoperative day 1 from left knee replacement, doing remarkably we ll. Pain is controlled. She is neurologically intact. Therapy went well. PLAN: 1. DVT prophylaxis includes thigh-high TEDs, SCDs, and aspirin twice a day. 2. PT/OT, weightbear as tolerated. Left total knee protocol. 3. Pain control, doing okay with current pain regimen. 4. Disposition: Plan to discharge to home with some home health later today. Job ID: [id number]
--- NOTE | 2023-04-28 07:40 | Discharge Summary ---
Date of Service April 28, 2023 Discharge Data Procedures Performed Operation Date: 04/22/23 12:00 Actual Procedures p Left Total Knee Arthroplasty(Left) - Ryan Cespedes MD Hospital Course (1) Status post total left knee replacement: This is a 67 year old patient admitted on 04/22/23 and underwent total knee arthroplasty. She tolerated the procedure well and there were no complications. Transferred to the PACU post op and later to the orthopedic floor for further care. She was given ancef for antibiotic prophylaxis. She was also given PATRICE stockings, SCDs, and aspirin for DVT prophylaxis. Hemoglobin, hematocrit, and vital signs were monitored during her hospital stay and remained stable. Did not require any blood transfusions. There were no complications during her hospital stay. By post op day #1 the patient was tolerating a heart healthy diet, pain was reasonably controlled with oral pain medicine, and she was participating in physical therapy. On post op day #1 the patient was discharged home and set up with home health care. She was given printed discharge instructions including prescriptions for extra strength tylenol, aspirin, cefadroxil, ketorolac, zofran, oxycodone, and senokot. Continue physical therapy, weight bearing as tolerated. Continue PATRICE stockings. Follow up approximately 2 weeks post op or sooner if there are problems or concerns. Coding Level of Care Code None Diagnoses Status post total left knee replacement Z96.652
== END 2023-04-23 14:13 | disposition home health service (06) ==
LOC: 3E 09:20 → ASU 09:20
DX: Z79.890 Hormone replacement therapy; Z99.81 Dependence on supplemental oxygen; Z79.82 Long term (current) use of aspirin; Z86.16 Personal history of COVID-19; Z79.899 Other long term (current) drug therapy; M17.12 Unilateral primary osteoarthritis, left knee; F17.290 Nicotine dependence, other tobacco product, uncomplicated